=== PATIENT | male | born 1960 | race African-American/Black ===

== ENCOUNTER 2016-12-31 22:53 | Emergency (ER) | payer BC ==
[~2016-12-31 22:53] MED LIST: ANADS PO; ASA5GR PO; ASAB PO; BACLOFEN20 MG PO; COPAXONE SC; COREG12 PO; CPZ25 PO; DOK100 MG PO; HEART MEDICATIONS; IMDUR30 PO; KLONO1 PO; LAMICTAL10 PO; LAMICTAL200 MG PO; LIOR10 PO; MEVACOR40 MG PO; MSCONTIN PO; NEUR300 PO; NEUR600 PO; NOR50 PO; OPANA ER10 MG PO; OPANA ER20 MG PO; PCET PO; PEP20 PO; PERCOCET1 TA2 PO; PLAVIX PO; ZANAFLEX2 MG PO
[2017-01-01 00:22] LABS: BASOPHILS 0.1 %; BASOPHILS ABSOLUTE 0.01 10/3/uL (0.0-0.16); EOSINOPHILS 0 %; HEMOGLOBIN 16.3 g/dL (13.6-17.8); IMMATURE GRANULOCYTES 0.3 %; IMMATURE GRANULOCYTES ABSOLUTE 0.02 10/3/uL (0.0-0.11); LYMPHOCYTES 6.9 %; LYMPHOCYTES ABSOLUTE 0.51 10/3/uL (0.67-4.30); MEAN CORPUS HGB CONC 35.1 g/dL (32.0-36.0); MEAN CORPUSCULAR HEMOGLOB 32.8 pg (26.0-34.0); MEAN PLATELET VOLUME 11.2 fL (9.2-13.0); MONOCYTES 11.6 %; MONOCYTES ABSOLUTE 0.86 10/3/uL (0.21-1.20); NEUTROPHILS 81.1 %; PLATELET COUNT 135 10/3/uL (150-400); RBC DISTRIBUTION WIDTH 13.1 % (12.0-16.0); RED CELL COUNT 4.97 10/6/uL (4.7-6.1)
[2017-01-01 00:25] LABS: HEMATOCRIT 46.4 % (40.0-51.0); MANUAL DIFF NO %; MEAN CORPUSCULAR VOLUME 93.4 fL (80-100); WHITE BLOOD CELLS 7.4 10/3/uL (4.5-10.5)
[2017-01-01 00:46] LABS: A/G RATIO 0.8 (0.7-1.9); ALBUMIN 3.8 G/DL (3.5-5.0); ALKALINE PHOSPHATASE 98 U/L (45-117); CALCIUM, SERUM 9.3 MG/DL (8.5-10.4); CHLORIDE, SERUM 108 MMOL/L (96-112); CO2 (CARBON DIOXIDE) 26 MMOL/L (24-34); GLOBULIN 4.5 G/DL (2.5-4.1); SGOT(AST) 13 U/L (5-40); SGPT(ALT) 22 U/L (5-65); SODIUM, SERUM 141 MMOL/L (135-148); TOTAL BILIRUBIN 0.6 MG/DL (0-1.2); TOTAL PROTEIN 8.3 G/DL (6.0-8.5); TROPONIN I <0.02 NG/ML (<0.05)
[2017-01-01 00:47] LABS: BUN (BLOOD UREA NITROGEN) 18 MG/DL (6-23); CK-MB < 0.5 NG/ML; CPK 74 U/L (0-200); CREATININE 1.45 MG/DL (0.70-1.30); GFR AFRICAN AMERICAN 62 ML/MIN (>=60); GFR NON AFRICAN AMERICAN 54 ML/MIN (>=60); GLUCOSE, SERUM 124 MG/DL (60-99)
[2017-01-01 03:42] LABS: INFLUENZA A SCREEN NEGATIVE (NEGATIVE); INFLUENZA B SCREEN NEGATIVE (NEGATIVE)
== END 2017-01-01 05:15 | disposition home or self-care (01) ==
LOC: ER 22:53
PROVIDERS: Emergency Medicine; Physician Assistant
DX: G35 Multiple sclerosis (principal); I10 Essential (primary) hypertension; Z88.8 Allergy status to other drugs, medicaments and biological substances; Z79.899 Other long term (current) drug therapy
CPT/HCPCS: 80053; 81001; 82550; 82553; 84484; 85025; 87070; 87804; 87880; 96372; 99285; J2930